=== PATIENT | male | born 1945 | race Caucasian/White ===

== ENCOUNTER → 2021-08-15 | Outpatient (CLI) | payer MEDICARE, OTHER ==
[~2021-08-15] MED LIST: ALLOPURINOL300 MG PO; ASPIRIN EC81 MG PO; ATORVASTATIN CA40 MG PO; CARVEDILOL6.25 MG PO; CLEOCIN HCL300 MG PO; FLOMAX 0.4 MG0.4 MG PO; HYDROCODONE-AC1 EAC1 PO
[2021-08-15 11:01] LABS: HEMOGLOBIN 14.7 gm/dl (14.0-17.5); RED BLOOD COUNT 5.09 M/UL (4.20-5.50); WHITE BLOOD COUNT 6.5 K/UL (4.5-11.0)
[2021-08-15 11:17] LABS: BUN/CREATININE RATIO 15 (0-10)
== END ==
LOC: OPSV2 10:00 → EDSTATUS 10:30
PROVIDERS: Orthopaedic Surgery
DX: Z01.818 Encounter for other preprocedural examination (principal); M17.11 Unilateral primary osteoarthritis, right knee
CPT/HCPCS: 36415; 80048; 85027; 93005

== ENCOUNTER → 2021-09-05 | Outpatient (CLI) | payer MEDICARE, OTHER ==
[~2021-09-05] MED LIST changes: +CYCLOBENZAPRINE10 MG PO; +ENDOCET 10-3251 EACH PO; +ZOFRAN 4 MG TAB4 MG PO
== END ==
LOC: LAB 11:09
PROVIDERS: Orthopaedic Surgery
DX: Z01.812 Encounter for preprocedural laboratory examination (principal)
CPT/HCPCS: 36415; 80048; 86850; 86900; 86901

== ENCOUNTER → 2021-09-06 | Day surgery (SDC) | payer MEDICARE, OTHER ==
[~2021-09-06] VITALS: Ht 172.7 cm; Wt 97.5 kg
== END | disposition home or self-care (01) ==
LOC: OR 06:04 → EDSTATUS 14:45
DX: M17.11 Unilateral primary osteoarthritis, right knee (principal); I25.10 Atherosclerotic heart disease of native coronary artery without angina pectoris; I10 Essential (primary) hypertension; E78.5 Hyperlipidemia, unspecified; Z95.1 Presence of aortocoronary bypass graft; Z96.652 Presence of left artificial knee joint; Z95.2 Presence of prosthetic heart valve; Z79.82 Long term (current) use of aspirin; Z20.822 Contact with and (suspected) exposure to COVID-19; Z87.891 Personal history of nicotine dependence; Z95.5 Presence of coronary angioplasty implant and graft
CPT/HCPCS: 73560; 97162; 97166; 97530; C1713; C1776; J0171; J0360; J0690; J0735; J1100; J1170; J1885; J2270; J2274; J2370; J2405; J2704; J2795; J3010; J3370; J7120; P9045